=== PATIENT | male | born 1980 | race Caucasian/White ===

== ENCOUNTER 2016-12-06 08:19 | Emergency (ER) | payer MEDICAID ==
[~2016-12-06] VITALS: Ht 162.6 cm; Wt 79.0 kg
[2016-12-06 08:38] VITALS: Ht 162.6 cm; Wt 79.0 kg
[2016-12-06] MEDS ORDERED: ONDANSETRON 4 MG INJ IV STA ×2 (08:59→10:28)
[2016-12-06] MEDS ORDERED: morphine 4 MG/ML VIAL IV STA (08:59)
--- NOTE | 2016-12-06 09:04 | ERD ---
ER Documentation Chief Complaint Date/Time DATE: 12/06/16 TIME: 09:01 Chief Complaint ap lower quads x 2 days HPI This is a 36-year-old male who presents to the emergency room complaining of abdominal pain for the past 2 days. Patient states he has taken Pepto-Bismol with no improvement in symptoms. Denies any nausea vomiting, dysuria, fevers or chills. States his last bowel movement was this morning and was normal. Denies any testicular pain. ROS All systems reviewed and are negative except as per history of present illness. Medications Home Meds Active Scripts Ibuprofen* (Motrin*) 800 Mg Tab, 800 MG PO Q6, #30 TAB Prov:AGGIE SIN PA-C 12/06/16 Metronidazole* (Flagyl*) 500 Mg Tablet, 500 MG PO TID for 10 Days, TAB Prov:AGGIE SINC 12/06/16 Hydrocodone/Acetaminophen (Kohler 10-325 Tablet) 1 Each Tablet, 1 TAB PO Q6H Y for PAIN, #20 TAB Prov:AGGIE SINC 12/06/16 Ciprofloxacin Hcl* (Ciprofloxacin Hcl*) 500 Mg Tablet, 500 MG PO BID for 10 Days , TAB Prov:AGGIE SINC 12/06/16 Allergies Allergies: Coded Allergies: No Known Allergy (Unverified , 12/06/16) PMhx/Soc Medical and Surgical Hx: pt denies Medical Hx, pt denies Surgical Hx History of Surgery: No Anesthesia Reaction: No Hx Neurological Disorder: No Hx Respiratory Disorders: No Hx Cardiac Disorders: No Hx Psychiatric Problems: No Hx Miscellaneous Medical Probl: No Hx Alcohol Use: Yes Hx Substance Use: No Hx Tobacco Use: No Smoking Status: Never smoker Physical Exam Vitals Vital Signs Date Time Temp Pulse Resp B/P Pulse Ox O2 Delivery O2 Flow Rate FiO2 12/06/16 08:38 98.6 84 18 132/90 98 Physical Exam Const: No acute distress Head: Atraumatic Eyes: Normal Conjunctiva ENT: Normal External Ears, Nose and Mouth. Neck: Full range of motion..~ No meningismus. Resp: Clear to auscultation bilaterally Cardio: Regular rate and rhythm, no murmurs Abd: Soft, periumbilical left lower quadrant tenderness, non distended. Normal bowel sounds. No right lower quadrant pain. No tenderness at McBurney's. Skin: No petechiae or rashes Neur: Awake and alert Psych: Normal Mood and Affect Result Diagram: 12/06/16 0910 12/06/16 0910 Results 24 hrs Laboratory Tests Test 12/06/16 09:10 Alanine Aminotransferase (ALT/SGPT) 106IU/L Albumin 4.8g/dl Albumin/Globulin Ratio 1.11 Alkaline Phosphatase 121IU/L Anion Gap 22 Aspartate Amino Transf (AST/SGOT) 64IU/L Basophils # 0.010^3/ul Basophils % 0.3% Blood Urea Nitrogen 17mg/dl Calcium Level 9.7mg/dl Carbon Dioxide Level 25mmol/L Chloride Level 102mmol/L Creatinine 0.76mg/dl Direct Bilirubin 0.00mg/dl Eosinophils # 0.110^3/ul Eosinophils % 1.0% Globulin 4.30g/dl Glucose Level 101mg/dl Hematocrit 50.1% Hemoglobin 17.0g/dl Indirect Bilirubin 0.4mg/dl Lipase 62U/L Lymphocytes # 1.110^3/ul Lymphocytes % 11.3% Mean Corpuscular Hemoglobin 30.8pg Mean Corpuscular Hemoglobin Concent 34.0g/dl Mean Corpuscular Volume 90.5fl Mean Platelet Volume 8.9fl Monocytes # 0.410^3/ul Monocytes % 4.4% Neutrophils # 8.410^3/ul Neutrophils % 83.0% Nucleated Red Blood Cells # 0.010^3/ul Nucleated Red Blood Cells % 0.0/100WBC Platelet Count 99317^3/UL Potassium Level 4.0mmol/L Red Blood Count 5.5310^6/ul Red Cell Distribution Width 13.1% Sodium Level 145mmol/L Total Bilirubin 0.4mg/dl Total Protein 9.1g/dl Urine Bilirubin NEGATIVE Urine Clarity CLEAR Urine Color LT. YELLOW Urine Glucose NEGATIVE% Urine Hemoglobin NEGATIVE Urine Ketones NEGATIVE Urine Leukocyte Esterase NEGATIVE Urine Nitrite NEGATIVE Urine Specific [place] 1.025 Urine Total Protein NEGATIVE Urine Urobilinogen 0.2 E.U./dL Urine pH 6.0 White Blood Count 10.110^3/ul Current Medications Medications (Trade) Dose Ordered Sig/Deni Route PRN Reason Start Time Stop Time Status Last Admin Dose Admin Morphine Sulfate (morphine) 4 mg ONCE STAT IV 12/06/16 08:59 12/06/16 09:00 DC 12/06/16 09:09 Ondansetron HCl (Zofran Inj) 4 mg ONCE STAT IV 12/06/16 08:59 12/06/16 09:00 DC 12/06/16 09:09 Hydromorphone HCl (Dilaudid) 1 mg ONCE STAT IV 12/06/16 10:21 12/06/16 10:22 DC 12/06/16 10:29 Ondansetron HCl (Zofran Inj) 4 mg ONCE STAT IV 12/06/16 10:28 12/06/16 10:29 DC 12/06/16 10:32 Patient: MARISSA MARI : 1980 Age: 36 Sex: M MR #: [id number] DOS: 12/06/16 0859 Ordering MD: AGGIE SIN PA-C Location: [facility] Room/Bed: PROCEDURE: CT Abdomen and Pelvis without contrast. CLINICAL INDICATION: Abdominal pain. TECHNIQUE: CT scan of the abdomen and pelvis without contrast was performed on a multidetector high-resolution CT scanner. The patient was scanned without intravenous contrast. Coronal and sagittal reformatted images were obtained from the axial source images. Images were reviewed on a high-resolution PACS workstation. The total exam CTDI equals 14.04 mGy and the total exam DLP equals 165.76 mGy-cm. One or the following dose reduction techniques were used: -Automated exposure control. -Adjustment of the mA and/or KV according to patient's size. -Use of iterative reconstruction technique. COMPARISON: None. FINDINGS: Lung Bases: There is minimal bibasilar dependent subsegmental atelectasis. GI:. There is a tiny hiatal hernia. Liver: There is mild hepatomegaly with a diffuse decrease in attenuation consistent with diffuse hepatic steatosis. Gallbladder: Unremarkable. Pancreas: Unremarkable. Spleen: Unremarkablel Adrenals: Unremarkable. Kidneys: There is a 2.0 mm nonobstructing calculus in the mid pole right kidney. Bladder: Unremarkable. Pelvic Organs: Unremarkable. Skeleton: Normal for age. Other: A normal-appearing appendix is visualized. IMPRESSION: 1. Segment of the descending colon which demonstrate circumferential thickening , diverticula and stranding in the adjacent fat consistent with acute diverticulitis. No focal inflammatory collection identified. 2. Mild hepatomegaly diffuse decrease in the attenuation of the liver consistent with hepatic steatosis. 3. 2.0 mm nonobstructing calculus mid pole of the right kidney. 4. Normal appearing appendix visualized. Note: A call report was made to Aggie Corona Pa-c on 12/06/2016 9:39: 26 AM. RPTAT: AACC Moises Garcia, Physician Date Time Electronically viewed and signed by Moises Garcia Physician on 12/06/2016 09: 44 JH/ CC: AGGIE SIN PA-C Procedures/MDM This is a 36-year-old male who presents to the emergency department today complaining of abdominal pain for the past 2 days. On physical exam patient had a significant amount of left lower quadrant and periumbilical tenderness. I did obtain laboratory work as well as imaging. Laboratory work shows no elevated white blood cell count. He is not anemic. Platelets are within normal limits. Sodium is mildly elevated otherwise electro lites are within normal limits. Glucose is within normal limits. Liver functions elevated. Lipase is within normal limits. UA is negative. CT abdomen and pelvis noncontrast shows a segment of the descending colon which demonstrate circumstantial thickening, diverticula and stranding in the J[place]aran sac consistent with acute diverticulitis. There is no focal inflammatory collection. There is mild hepatomegaly diffuse decrease in attenuation of the liver consistent with hepatic steatosis. There is a 2 mm nonobstructing calculus in the mid pole of the right kidney. Normal-appearing appendix. Gallbladder is unremarkable. I did receive a call from Dr. Garcia, radiologist in regards to the patients CT scan. Symptoms of left lower quadrant pain consistent with acute diverticulitis. There is no perforation or abscess formation. Patient is afebrile and otherwise well appearing and I thought the patient is stable for outpatient management and discharge. Patient will be given a prescription for Cipro and Flagyl and Kohler. I did discuss with the patient his elevated liver enzymes and given that the patient has multiple tattoos and instructed him he should follow-up regarding his elevated liver function and have testing to rule out hepatitis. Patient understood Patient was given morphine, Zofran here in the emergency department. He was still complaining of pain and was therefore given Dilaudid after discussing the patient with Dr. Robert. Patient will be given a restriction for Cipro, Flagyl, Kohler and Motrin. Discussed the patient with Dr. Robert and he is in agreement with the plan. Departure Diagnosis: Primary Impression: Diverticulitis Diverticulitis site: large intestine Diverticulitis bleeding: without bleeding Diverticulitis complication: without perforation or abscess Qualified Code: K57.32 - Diverticulitis of large intestine without perforation or abscess without bleeding Condition: AGGIE Posadas PA-C Dec 06, 2016 09:04
[2016-12-06 09:38] LABS: ALBUMIN 4.8 g/dl (3.3-4.9)
[2016-12-06 09:40] LABS: ADD UMIC NO; URINE BILIRUBIN (Dip) NEGATIVE (NEGATIVE); URINE BLOOD (Dip) NEGATIVE (NEGATIVE); URINE COLOR LT. YELLOW (YELLOW); URINE GLUCOSE (Dip) NEGATIVE (NEGATIVE); URINE KETONES (Dip) NEGATIVE (NEGATIVE); URINE LEUKOCYTE ESTERASE (Dip) NEGATIVE (NEGATIVE); URINE NITRITE (Dip) NEGATIVE (NEGATIVE); URINE TOTAL PROTEIN (Dip) NEGATIVE (NEGATIVE); URINE UROBILINOGEN (Dip) 0.2 E.U./dL (0.1-1.0)
[2016-12-06 09:41] LABS: ALBUMIN/GLOBULIN RATIO 1.11; BILIRUBIN,INDIRECT 0.4 mg/dl (0-1.1); BILIRUBIN,TOTAL 0.4 mg/dl (0.2-1.3); CREATININE 0.76 mg/dl (0.61-1.24); TOTAL PROTEIN 9.1 g/dl (6.1-8.1)
[2016-12-06 09:42] LABS: CALCIUM 9.7 mg/dl (8.4-10.2)
--- NOTE | 2016-12-06 09:44 | RADRPT ---
PROCEDURE: CT Abdomen and Pelvis without contrast. CLINICAL INDICATION: Abdominal pain. TECHNIQUE: CT scan of the abdomen and pelvis without contrast was performed on a multidetector hig h-resolution CT scanner. The patient was scanned without intravenous contrast. Coronal and sagittal reformatted images were obtained from the axial source images. Images were reviewed on a high-resol [employer] PACS workstation. The total exam CTDI equals 14.04 mGy and the total exam DLP equals 165.76 mG y-cm. One or the following dose reduction techniques were used: -Automated exposure control. -Adjustment of the mA and/or KV according to patient's size. -Use of iterative reconstruction technique. COMPARISON: None. FINDINGS: Lung Bases: There is minimal bibasilar dependent subsegmental atelectasis. GI:. There is a tiny hiatal hernia. Liver: There is mild hepatomegaly with a diffuse decrease in attenuation consistent with diffuse hep atic steatosis. Gallbladder: Unremarkable. Pancreas: Unremarkable. Spleen: Unremarkablel Adrenals: Unremarkable. Kidneys: There is a 2.0 mm nonobstructing calculus in the mid pole right kidney. Bladder: Unremarkable. Pelvic Organs: Unremarkable. Skeleton: Normal for age. Other: A normal-appearing appendix is visualized. IMPRESSION: 1. Segment of the descending colon which demonstrate circumferential thickening, diverticula and str anding in the adjacent fat consistent with acute diverticulitis. No focal inflammatory collection i dentified. 2. Mild hepatomegaly diffuse decrease in the attenuation of the liver consistent with hepatic steat osis. 3. 2.0 mm nonobstructing calculus mid pole of the right kidney. 4. Normal appearing appendix visualized. Note: A call report was made to Aggie Coroan Pa-c on 12/06/2016 9:39:26 AM. RPTAT: AACC Physician Lindsay Date Time Electronically viewed and signed by Physician Lindsay on 12/06/2016 09:44 /
[2016-12-06 10:04] LABS: BASOPHILS % 0.3 % (0.0-2.0); EOSINOPHILS # 0.1 10^3/ul (0.0-0.5); HEMATOCRIT 50.1 % (42.0-52.0); LYMPHOCYTES # 1.1 10^3/ul (0.8-2.9); LYMPHOCYTES % 11.3 % (15.0-51.0); MEAN CORPUSCULAR HEMOGLOBIN 30.8 pg (29.0-33.0); MEAN CORPUSCULAR VOLUME 90.5 fl (82.0-101.0); MEAN PLATELET VOLUME 8.9 fl (7.4-10.4); MONOCYTE # 0.4 10^3/ul (0.3-0.9); MONOCYTES % 4.4 % (0.0-11.0); NEUTROPHIL # 8.4 10^3/ul (1.6-7.5); PLATELET COUNT 189 10^3/UL (140-440); RED BLOOD COUNT 5.53 10^6/ul (4.70-6.10); RED CELL DISTRIBUTION WIDTH 13.1 % (11.5-14.5); UNCORRECTED WBC 10.1 10^3/ul (4.8-10.8); WHITE BLOOD COUNT 10.1 10^3/ul (4.8-10.8)
[2016-12-06 10:05] LABS: CONDITION 1
[2016-12-06] MEDS ORDERED: HYDROmorphONE 1 MG/ML SYG IV STA (10:21)
[2016-12-06] MEDS ORDERED: CIPR500T4 PO (11:22)
[2016-12-06] MEDS ORDERED: METR500T PO (11:23)
[2016-12-06] MEDS ORDERED: IBUP800T25 PO (11:23)
[2016-12-06] MEDS ORDERED: HYDR-902 PO (11:23)
== END 2016-12-06 11:34 | disposition home or self-care (01) ==
LOC: FTE 08:19
DX: K57.32 Diverticulitis of large intestine without perforation or abscess without bleeding (principal)
CPT/HCPCS: 36415; 74176; 80053; 81003; 83690; 85025; 96374; 96375; 96376; J1170; J2270; J2405; Z7502

== ENCOUNTER 2018-01-22 02:59 | Emergency (ER) | END 2018-01-22 05:25 | disposition home or self-care (01) ==

== ENCOUNTER 2019-05-05 18:11 | Emergency (ER) | payer MEDICAID ==
[~2019-05-05] VITALS: Ht 162.6 cm; Wt 80.7 kg
[~2019-05-05 18:11] MED LIST: CIPR500T4 PO; METR500T PO; TRAM50TA2 PO
[2019-05-05 18:54] VITALS: Ht 162.6 cm; Wt 80.7 kg
[2019-05-05] MEDS ORDERED: ONDANSETRON 4 MG INJ IV STA (21:29)
[2019-05-05] MEDS ORDERED: morphine 4 MG/ML VIAL IV STA (21:29)
[2019-05-05] MEDS ORDERED: SOD CHLORIDE 0.9% 1,000 ML IV STA (21:29)
--- NOTE | 2019-05-05 21:35 | ERD ---
ER Documentation Chief Complaint Chief Complaint AP x 2 days with diarrhea denies n/v HPI 38-year-old male with history of diverticulitis presents with complaint of lower left abdominal pain since Sunday. States that the pain is currently 10 out of 10. Pain is made worse when ambulating and with palpation. Denies any treatments. States he has been having some diarrhea. Denies any nausea, vomiting, fevers, hematochezia. Denies allergies. ROS All systems reviewed and are negative except as per history of present illness. Medications Home Meds Active Scripts Hydrocodone/Acetaminophen ([place] 5-325 Tablet) 1 Each Tablet, 1 TAB PO Q6H PRN for PAIN, #15 TAB Prov:CLARI BARLOW 05/06/19 Amoxicillin/Potassium Clav (Amox-Clav 875-125 mg Tablet) 875-125 mg Tab, 1 TAB PO BID for 10 Days, #20 TAB Prov:CLARI BARLOW 05/06/19 Tramadol HCl (Tramadol HCl) 50 Mg Tablet, 50 MG PO Q4 PRN for PAIN, #20 TAB Prov:CLARI CORTEZ S. 01/22/18 Metronidazole* (Flagyl*) 500 Mg Tablet, 500 MG PO TID for 7 Days, TAB Prov:CLARI CORTEZ S. 01/22/18 Ciprofloxacin Hcl* (Ciprofloxacin Hcl*) 500 Mg Tablet, 500 MG PO BID for 7 Days, TAB Prov:NATALEECLRAI VASQUEZ S. 01/22/18 Ciprofloxacin Hcl* (Ciprofloxacin Hcl*) 500 Mg Tablet, 500 MG PO BID for 10 Days, TAB Prov:HYACINTH SIN PA-C 12/06/16 Allergies Allergies: Coded Allergies: No Known Allergy (Unverified , 12/06/16) PMhx/Soc History of Surgery: No Anesthesia Reaction: No Hx Neurological Disorder: No Hx Respiratory Disorders: No Hx Cardiac Disorders: No Hx Psychiatric Problems: No Hx Miscellaneous Medical Probl: No Hx Alcohol Use: Yes Hx Substance Use: No Hx Tobacco Use: No FmHx Family History: No diabetes, No coronary disease, No other Physical Exam Vitals Vital Signs Date Temp Pulse Resp B/P (MAP) Pulse Ox O2 O2 Flow FiO2 Time Delivery Rate 05/06/19 99.2 67 18 119/63 96 01:10 (81) 05/05/19 99.2 80 16 142/91 97 18:54 (108) Physical Exam Const: No acute distress Head: Atraumatic Eyes: Normal Conjunctiva ENT: Normal External Ears, Nose and Mouth. Neck: Full range of motion. No meningismus. Resp: Clear to auscultation bilaterally Cardio: Regular rate and rhythm, no murmurs Abd: Tenderness to palpation in the lower left quadrant with guarding and rigidity. Skin: No petechiae or rashes Back: No midline or flank tenderness Ext: No cyanosis, or edema Neur: Awake and alert Psych: Normal Mood and Affect Result Diagram: 05/05/19214005/05/192140 Results 24 hrs Laboratory Tests Test 05/05/19 21:41 White Blood Count 11.2 10^3/ul Red Blood Count 5.33 10^6/ul Hemoglobin 15.7 g/dl Hematocrit 47.7 % Mean Corpuscular Volume 89.5 fl Mean Corpuscular Hemoglobin 29.5 pg Mean Corpuscular Hemoglobin Concent 32.9 g/dl Red Cell Distribution Width 12.6 % Platelet Count 226 10^3/UL Mean Platelet Volume 10.3 fl Immature Granulocytes % 0.300 % Neutrophils % 76.5 % Lymphocytes % 15.3 % Monocytes % 4.4 % Eosinophils % 3.1 % Basophils % 0.4 % Nucleated Red Blood Cells % 0.0 /100WBC Immature Granulocytes # 0.030 10^3/ul Neutrophils # 8.6 10^3/ul Lymphocytes # 1.7 10^3/ul Monocytes # 0.5 10^3/ul Eosinophils # 0.4 10^3/ul Basophils # 0.1 10^3/ul Nucleated Red Blood Cells # 0.0 10^3/ul Urine Color YELLOW Urine Clarity CLOUDY Urine pH 7.0 Urine Specific [place] 1.031 Urine Ketones NEGATIVE mg/dL Urine Nitrite NEGATIVE mg/dL Urine Bilirubin NEGATIVE mg/dL Urine Urobilinogen NEGATIVE mg/dL Urine Leukocyte Esterase TRACE Kirk/ul Urine Microscopic RBC 4 /HPF Urine Microscopic WBC 13 /HPF Urine Bacteria FEW /HPF Urine Mucus MANY /HPF Urine Hemoglobin NEGATIVE mg/dL Urine Glucose NEGATIVE mg/dL Urine Total Protein 1+ mg/dl Sodium Level 141 mmol/L Potassium Level 3.5 mmol/L Chloride Level 102 mmol/L Carbon Dioxide Level 27 mmol/L Anion Gap 12 Blood Urea Nitrogen 12 mg/dl Creatinine 0.76 mg/dl Est Glomerular Filtrat Rate mL/min > 60 mL/min Glucose Level 115 mg/dl Calcium Level 9.4 mg/dl Total Bilirubin 0.6 mg/dl Direct Bilirubin 0.00 mg/dl Indirect Bilirubin 0.6 mg/dl Aspartate Amino Transf (AST/SGOT) 33 IU/L Alanine Aminotransferase (ALT/SGPT) 71 IU/L Alkaline Phosphatase 100 IU/L Total Protein 8.8 g/dl Albumin 4.6 g/dl Globulin 4.20 g/dl Albumin/Globulin Ratio 1.09 Lipase 60 U/L Current Medications Medications Dose Sig/Deni Start Time Status Last (Trade) Ordered Route PRN Stop Time Admin Dose Reason Admin Sodium 1,000 ml @ Q1H STAT 05/05/19 DC 05/05/19 Chloride 1,000 mls/hr IV 21:29 21:43 05/05/19 22:28 Morphine 4 mg ONCE STAT 05/05/19 DC 05/05/19 Sulfate IV 21:29 21:44 (morphine) 05/05/19 21:31 Ondansetron 4 mg ONCE STAT 05/05/19 DC 05/05/19 HCl (Zofran IV 21:29 21:43 Inj) 05/05/19 21:31 IV Flush 10 ml STK-MED 05/05/19 DC 05/05/19 (NS 10 ml) ONCE .ROUTE 23:08 23:11 05/05/19 23:09 Sodium 100 ml @ ud STK-MED 05/05/19 DC 05/05/19 Chloride ONCE .ROUTE 23:08 23:11 05/05/19 23:09 Iohexol 150 ml STK-MED 05/05/19 DC 05/05/19 (Omnipaque ONCE .ROUTE 23:08 23:11 300mg/ ml) 05/05/19 23:09 875 mg ONCE ONCE 05/06/19 DC 05/06/19 Amoxicillin/ PO 00:30 00:27 Clavulanate 05/06/19 00:31 Potassium (Augmentin) Morphine 2 mg ONCE STAT 05/06/19 DC 05/06/19 Sulfate IV 00:16 00:22 (morphine) 05/06/19 00:17 Procedures/MDM DIAGNOSTIC IMAGING REPORT Patient: MARISSA MARI : 1980 Age: 38 Sex: M MR #: [id number] DOS: 05/05/192128 Ordering MD: CLARI BARLOW Location: [facility] Room/Bed: PROCEDURE: CT abdomen and pelvis with contrast. CLINICAL INDICATION: 38-year-old male. Abdominal pain. TECHNIQUE: CT scan of the abdomen and pelvis with contrast was performed on a multi-slice CT scanner utilizing axial imaging from the lung bases through the pubis symphysis. One or more the following does reduction techniques were utilized: Automated exposure control, adjustment of the mA/ or kV according to patient's size, or use of iterative reconstruction technique. Sagittal and coronal reformatted images were made. DICOM images are available for review. The CTDIvol is 12.50 mGy and the DLP is 88 12.83 mGycm. CONTRAST: 90 cc Omnipaque-300 IV COMPARISON: CT abdomen pelvis 12/06/2016 FINDINGS: CT abdomen Visualized lung bases: Dependent related change/atelectasis posterior lower lobes.. No significant pleural or pericardial effusion. Liver: Hepatic steatosis. No focal liver lesion. Capsule margin is smooth. Patent portal vein. Gallbladder and bile ducts: No calcified gallstones or pericholecystic fluid. No biliary ductal dilatation. Spleen: Normal appearance. Pancreas: Normal appearance. No ductal dilatation. No mass. No peripancreatic stranding. Adrenal glands: Normal appearance. Kidneys: Symmetric nephrograms. No hydronephrosis or renal stones. No solid lesions. Vasculature: No abdominal aortic aneurysm. Calcified plaque absent. Negative IVC. Lymph nodes: No adenopathy. GI: No hiatal hernia. No evidence of obstruction or bowel wall thickening. Peritoneal cavity: Fluid and soft tissue stranding is present in the left pericolic gutter and the retro peritoneal fat posterior to the pericolic gutter. CT pelvis GI: Negative terminal ileum. Negative appendix. Acute diverticulitis of the proximal sigmoid colon. Inflammatory phlegmon surrounds the diseased segment. No abscess or drainable fluid collection. Evidence of perforation or free air. Negative rectum. : Genitourinary structures are unremarkable. Peritoneal cavity: No free fluid or loculated fluid collections. Lymph nodes: No adenopathy. Osseous structures: No lytic or blastic lesions. IMPRESSION: 1. Acute diverticulitis of the sigmoid colon. No abscess, drainable fluid collection or evidence of perforation. 2. Hepatic steatosis. RP physician [employer] consultant requested to call report by the undersigned at 0004 hours [place] time. RPTAT: HLRS Monica Mcmillan Physician Date Time Electronically viewed and signed by Monica Mcmillan Physician on 05/06/2019 00:06 RS/ CC: CLARI BARLOW [id number] MDM: patient's presentation is consistent with acute diverticulitis without evidence on CT of perforation,, abscess, or drainable fluid collection. I discussed the case with my supervising physician Dr. Hernandez and he stated that patient would be fit for discharge with course of antibiotics and not need to be admitted to receive IV antibiotics at this time. Patient was discharged with 10-day course of Augmentin per AMA outpatient antibiotic therapy guidelines and to avoid fluoroquinolones due to her adverse side effects. Patient's pain was controlled at discharge and vitals within normal limits. I have low suspicion for acute coronary syndrome, AAA, mesenteric ischemia, lower lobe pneumonia, DKA, bowel perforation, cholecystitis, choledocholithiasis, ascending cholangitis, hepatic abscess, pancreatitis, PUD, splenic rupture, pyelonephritis, nephrolithiasis, appendicitis, [testicular torsion. At this time, patient is stable for discharge and outpatient management. I have instructed the patient to follow-up with his/her primary care physician in 1-2 days. I have discussed with the patient the possibility of needing to see a specialist for further workup and imaging studies if symptoms persist. I have instructed the patient to promptly return to the ER for any new or worsening symptoms including but not limited to increased pain, fever, nausea, vomiting, weakness or LOC. The patient and/or family expressed understanding of and agreement with this plan. All questions were answered. Home care instructions were provided. Communication with patient both during the exam and instructions for discharge were performed with using a extension worker . Patient gave verbal confirmation to the practitioner, through the extension worker, that they understood everythign that was being said to them. DISCLAIMER: Inadvertent spelling and grammatical errors are likely due to EHR/dictation software use and do not reflect on the overall quality of patient care. Also, please note that the electronic time recorded on this note does not necessarily reflect the actual time of the patient encounter. . Departure Diagnosis: Primary Impression: Diverticulitis Condition: Stable CLARI BARLOW May 05, 2019 21:35
[2019-05-05] MEDS ORDERED: SOD CHLORIDE 0.9% 100 ML ONE (23:08)
[2019-05-05] MEDS ORDERED: IOHEXOL 300MG/ML 150 ML BTL ONE (23:08)
[2019-05-06] MEDS ORDERED: HYDR-4011 PO (00:16)
[2019-05-06] MEDS ORDERED: morphine 2 MG INJ IV STA (00:16)
[2019-05-06] MEDS ORDERED: AMOX1TAB10 PO (00:16)
[2019-05-06] MEDS ORDERED: AMOXICILLIN/CLAV 875 MG TAB PO ONE (00:30)
[2019-05-06 01:10] VITALS: BP 119/63; PULSE 67; RESP 18
== END 2019-05-06 01:12 | disposition home or self-care (01) ==
LOC: FTE 18:11
DX: K57.32 Diverticulitis of large intestine without perforation or abscess without bleeding (principal)
CPT/HCPCS: 36415; 74177; 80053; 81001; 83690; 85025; 96374; 96375; 96376; J2270; J2405; J7030; Q9967; Z7502; Z7610